=== PATIENT | female | born 1955 | race Caucasian/White ===

== ENCOUNTER → 2018-03-19 | Outpatient (CLI) | payer BC, OTHER | LOC: CAT | PROVIDERS: Internal Medicine Cardiovascular Disease | DX: R07.9 Chest pain, unspecified (principal); R68.89 Other general symptoms and signs; R53.83 Other fatigue; R06.02 Shortness of breath ==

== ENCOUNTER → 2018-03-19 | Outpatient (CLI) | payer OTHER | LOC: CAT 08:01 | DX: R07.9 Chest pain, unspecified (principal) ==

== ENCOUNTER → 2020-05-07 | Outpatient (CLI) | payer OTHER, MEDICARE | LOC: SJCVC 13:05 | PROVIDERS: ATTEND Internal Medicine Cardiovascular Disease | DX: E78.00 Pure hypercholesterolemia, unspecified (principal); R94.31 Abnormal electrocardiogram [ECG] [EKG]; Z79.899 Other long term (current) drug therapy; Z87.891 Personal history of nicotine dependence ==

== ENCOUNTER → 2020-12-28 | Outpatient (CLI) | payer OTHER, MEDICARE | LOC: SJCVCIMAG 07:20 | PROVIDERS: ATTEND Internal Medicine Cardiovascular Disease | DX: I49.3 Ventricular premature depolarization (principal); R94.31 Abnormal electrocardiogram [ECG] [EKG]; R07.89 Other chest pain; R06.00 Dyspnea, unspecified; E78.5 Hyperlipidemia, unspecified; Z79.899 Other long term (current) drug therapy; Z87.891 Personal history of nicotine dependence ==

== ENCOUNTER → 2020-12-28 | Outpatient (CLI) | payer OTHER | LOC: CAT 13:45 | PROVIDERS: ATTEND Internal Medicine Cardiovascular Disease | DX: Z13.6 Encounter for screening for cardiovascular disorders (principal); E78.00 Pure hypercholesterolemia, unspecified; I25.10 Atherosclerotic heart disease of native coronary artery without angina pectoris ==